=== PATIENT | female | born 1960 | race Caucasian/White ===

== ENCOUNTER 2016-12-05 05:44 | Observation (INO) | payer MEDICARE ==
[~2016-12-05] VITALS: Ht 154.9 cm; Wt 68.5 kg
--- NOTE | ~2016-12-05 | OR ---
Unit #: [id number] #: [id number] Patient: AIDA MAZARIEGOS [id number] [address] [place], [place] [address] [id number] MR#: [id number] NAME: AIDA MAZARIEGOS ROOM: 477 Date of Procedure: 12/05/2016 Admission Date: 12/05/2016 Surgeon: Garth Dorado M.D. : 1960 Attending Physician: Garth Dorado M.D. Primary Care Physician: Feroz Mancera M.D. OPERATIVE REPORT PREOPERATIVE DIAGNOSES 1. Right calcaneal malunion. 2. Posttraumatic right subtalar joint arthritis. 3. Right calcaneocuboid joint arthritis, posttraumatic. POSTOPERATIVE DIAGNOSES 1. Right calcaneal malunion. 2. Posttraumatic right subtalar joint arthritis. 3. Right calcaneocuboid joint arthritis, posttraumatic. PROCEDURES PERFORMED 1. Right posterior distraction subtalar fusion using allograft (75269). 2. Right calcaneocuboid fusion (41502). 3. Right Barroso calcaneal osteotomy (12030). 4. Right proximal tibial bone graft, large (37358). [employer]. ANESTHESIA Popliteal saphenous block and general. INDICATIONS FOR SURGERY The patient is a 56-year-old female, who is 1 year status post right calcaneal fracture, which was treated nonoperatively. The patient now has a varus deformity of the hindfoot measuring 10 degrees as well as pain over her arthritic subtalar and calcaneocuboid joints. The patient has failed nonoperative care. CT scan shows a decreased Boehler angle and posttraumatic arthritis of the subtalar joint and calcaneocuboid joint. The calcaneus has healed in a 10-degree varus malunion. The patient is therefore to undergo posterior distraction fusion to reestablish calcaneal height, address the subtalar joint arthritis as well as calcaneocuboid fusion. DESCRIPTION OF PROCEDURE The patient underwent popliteal saphenous block in the anesthesia holding area to the right lower extremity. She was taken to the operating room and placed in supine position, and general anesthetic was induced. She was then placed in a left lateral decubitus position, and all bony prominences were well padded. The axillary roll was placed, and the patient was positioned with the aid of a beanbag. A pneumatic tourniquet was applied to the right thigh. The right leg was identified as the Unit #: [id number] #: [id number] Patient: AIDA MAZARIEGOS correct operative extremity during the time-out procedure. The IV antibiotic protocol was followed. The right leg was then prepped and draped in the usual sterile fashion. The leg was exsanguinated and the thigh tourniquet inflated to 300 mmHg. A lateral longitudinal incision was then made over the distal fibula and sinus tarsi extending to the base of the fourth metatarsal measuring 8 cm. Subcutaneous tissue was carefully divided. The subtalar joint was opened and distracted with a laminar applied biology professor. The contents of the sinus tarsi were excised. The power osteotome, curved curettes, and rongeurs were utilized to remove the articular cartilage from both sides of the subtalar joint. The underlying subchondral bone was then feathered with the power osteotome. The calcaneocuboid joint was then exposed, and the power osteotome, curved curettes, and rongeurs were utilized to remove the articular cartilage from both sides of the calcaneocuboid joint. The underlying subchondral bone was feathered with the power osteotome. A 6 cm lateral proximal tibial incision was then made over the Gerdy's tubercle. The extensor retinaculum was opened, and the lateral proximal tibial cortex was exposed subperiosteally. A 1 x 2 cm cortical window was made with the power osteotome, and a large amount of cancellous graft was harvested with the curved curette. The subtalar joint was then distracted with a laminar applied biology professor, and a 16 mm wide allograft bone wedge from [place] was placed in the posteromedial aspect of the subtalar joint. Position was checked with C-arm fluoroscopy. A collagen sponge soaked in the bone morphogenic protein was then placed in the anterior portion of the subtalar joint, and the autogenous bone graft was then packed into the sinus tarsi and around the lateral aspect of the allograft bone wedge. Attempts were made to reduce the subtalar joint out of varus without significant success. It was therefore decided to proceed with lateral closing wedge osteotomy of the calcaneus. A 5 cm lateral incision was made over the calcaneal tuberosity. Subcutaneous tissue was divided. Dissection proceeded directly down to the lateral calcaneal wall. A 5 mm bone wedge was then harvested with the microsagittal saw. The wedge was removed and then the osteotomy was closed. The osteotomy and subtalar joint were then fixated with two guide pins placed from the posterior inferior heel into the talar neck and talar body in a parallel fashion. This then corrected the hindfoot to about 2 degrees of valgus. A fully-threaded [place] 7.0 screw was placed over the inferior guide pin and tightened. A [place] 5.5 mm diameter fully-threaded cannulated screw was placed over the superior guide pin and tightened. Excellent fixation was achieved. Intraoperative C-arm fluoroscopy in AP and lateral views showed proper screw position. The forefoot was then reduced and the calcaneocuboid joint was fixated with [place] 5.5 mm diameter partially-threaded cannulated screw placed from distal to proximal. The proximal tibial donor site was then irrigated and packed with Gelfoam. The cortical window was replaced. The extensor retinaculum was closed meticulously with a running 2-0 Vicryl locking suture. Tourniquet was released with a total tourniquet time of 95 minutes. Bleeding was controlled with electrocautery. The deep muscle fascia was closed with 2-0 Vicryl. Subcutaneous tissue was closed with 3-0 Vicryl, and the skin was closed with 3-0 nylon horizontal mattress sutures. Xeroform gauze, Unit #: [id number] #: [id number] Patient: AIDA MAZARIEGOS dressing, sponges, Webril, and a posterior fiberglass splint were applied. The patient was then transported to the recovery room in stable condition. ESTIMATED BLOOD LOSS Minimal. COMPLICATIONS None. SPECIMENS None. TOURNIQUET TIME 95 minutes. Dictated byKenyatta Sandhu/china TD: 12/06/2016 03:54 JOB #: [id number] OPERATIVE REPORT Page 1 of 1 X Roxana Dorado MD PROCEDURE OPERATIVE NOTE
--- NOTE | ~2016-12-05 | DS ---
Unit #: [id number] #: [id number] Patient: AIDA MAZARIEGOS [id number] [address] [place], [place] [address] [id number] MR#: [id number] NAME: AIDA MAZARIEGOS ROOM: 477 Age: 56 Sex: F Admission Date: 12/05/2016 : 1960 Discharge Date: 12/07/2016 Attending Physician: Garth Dorado M.D. Primary Care Physician: Feroz Mancera M.D. DISCHARGE SUMMARY CHIEF COMPLAINT Right foot pain. HISTORY OF PRESENT ILLNESS The patient has a history of previous right calcaneal fracture treated nonoperatively. She now has a calcaneal malunion with posttraumatic arthritis and hindfoot varus. She has failed to respond to conservative care. She is therefore admitted for operative intervention. HOSPITAL COURSE The patient was taken to the operating room on the date of admission where she underwent right posterior distraction and subtalar fusion using tricortical Allograft, calcaneal cuboid fusion, Barroso calcaneal osteotomy, and proximal tibial bone graft. There were no operative complications. She had a stable postoperative course. Pain was controlled with an IV morphine INBOUND INGREDIENT LOGISTICS SPECIALIST and oral Percocet. She was seen by physical therapy on a daily basis and instructed on how to remain nonweightbearing on her affected side. She remained afebrile with stable vital signs. Dressing was changed on the second postoperative day. Wounds were healing well. FINAL DIAGNOSES 1. Right calcaneal malunion. 2. Posttraumatic right subtalar joint arthritis. 3. Posttraumatic right calcaneal cuboid joint arthritis. PLAN 1. The patient is discharged home. She will keep the dressing clean, dry, and intact. She will continue ice and elevation. 2. She will be strictly nonweightbearing for three months. 3. Discharge medications remain the same as her home medications with the addition of Percocet 5/325 one or two p.o. q.6 hours p.r.n. pain dispense 50 and Xarelto 10 mg p.o. daily for a total of two weeks postoperatively. 4. Followup in my office in two weeks for dressing change, suture removal, application of a cast. Dictated by.Eloy Dorado M.D. [facility]/elisabeth Unit #: [id number] #: [id number] Patient: AIDA MAZARIEGOS TD: 12/07/2016 08:58 JOB #: [id number] DISCHARGE SUMMARY Page 1 of 1 X Roxana Dorado MD X DISCHARGE SUMMARY
--- NOTE | ~2016-12-05 | HP ---
Unit #: [id number] #: [id number] Patient: AIDA MAZARIEGOS [id number] [address] [place], [place] [address] [id number] MR#: [id number] NAME: AIDA MAZARIEGOS ROOM: Age: 56 Sex: F Admission Date: 12/05/2016 : 1960 Attending Physician: Garth Dorado M.D. Primary Care Physician: Feroz Mancera M.D. HISTORY AND PHYSICAL CHIEF COMPLAINT Right foot pain. HISTORY OF PRESENT ILLNESS The patient is a 56-year-old female who fell 2 feet into a concrete ditch in November 2015, 1 year ago. She was treated nonoperatively. She was eventually seen by Dr. Mao who diagnosed her with post-traumatic subtalar joint arthritis with a calcaneal malunion. The patient has had a CT scan which demonstrates loss of Bohler's angle and calcaneocuboid arthritis with post-traumatic arthritis of the subtalar joint and calcaneocuboid joint. The patient is therefore admitted for subtalar fusion and calcaneocuboid joint fusion. The patient is a smoker and we will also use infused bone morphogenic protein. PAST MEDICAL HISTORY Remarkable for: 1. Tobacco abuse. 2. Migraines. 3. Allergic rhinitis. 4. Hypercholesterolemia. 5. Major depression. 6. Urinary incontinence. HOME MEDICATIONS 1. Alendronate. 2. Atorvastatin. 3. Buspirone. 4. Celexa. 5. Excedrin. 6. Ibuprofen. 7. Topiramate. 8. Trazodone. ALLERGIES None. PAST SURGICAL HISTORY 1. . 2. Foot surgery. SOCIAL HISTORY The patient is a current everyday smoker. She reports social use of alcohol. Unit #: [id number] #: [id number] Patient: AIDA MAZARIEGOS FAMILY HISTORY Remarkable for stroke, COPD, osteoporosis, diabetes, myocardial infarction and alcohol abuse. REVIEW OF SYSTEMS Otherwise unremarkable. PHYSICAL EXAMINATION GENERAL: Height 5 foot 5, weight 145 pounds. In general, this is a small, well developed, well nourished female in no acute distress. PHARYNX: Clear. NECK: Supple without masses. HEART: Regular sinus rhythm without murmurs or gallops. LUNGS: Clear. ABDOMEN: Soft and nontender without masses or organomegaly. Evaluation of the right foot shows a slight cavus of the foot with 10 degrees of healed varus. The left heel is in neutral position. The patient has 10 degrees of fixed forefoot varus. Right ankle dorsiflexion 5 degrees, plantar flexion 30 degrees. Subtalar motion is absent. First MCP joint dorsiflexion 30 degrees, plantar flexion 10 degrees. The patient exhibits mild first ray elevatus. The patient is tender over the sinus tarsi and over the lateral border of the midfoot in the location of the calcaneocuboid joint. The ankle joint is nontender. Pulses are normal. Sensation is normal. Motor exam is normal. Standing x-rays of the right ankle are normal. Standing x-rays of the right foot show a calcaneal malunion with a Bohler's angle measuring -14 degrees. There is calcaneocuboid arthritis and first ray elevatus. CT scan of the right foot performed July 2016, shows a calcaneal malunion without significant lateral impingement. There is 10 degrees of calcaneal tuberosity varus. There is arthritis of the calcaneocuboid joint. ADMITTING DIAGNOSES 1. Right calcaneal malunion. 2. Right post-traumatic subtalar arthritis. 3. Right post-traumatic calcaneocuboid joint arthritis. 4. Mild first ray elevatus with limitation of first MTP joint dorsiflexion. PLAN 1. The patient has failed to conservative care. She has pain with activities of daily living. She is therefore admitted for surgical intervention. 2. The patient will therefore undergo posterior distraction subtalar fusion using an allograft tricortical bone wedge. Will also use proximal tibial bone graft to augment the fusion and use infused bone morphogenic protein because of her smoking history. She will also undergo calcaneocuboid fusion. This procedure was described along with risks of bleeding, infection, nerve damage, need for further surgery in the future, prolonged recovery time, deep venous thrombosis, pulmonary embolism, nonunion, malunion and anesthetic complications. The patient understands there is no guarantee of a normal foot and she will most likely have ongoing foot pain. We are trying to relieve her pain by 60-70%. She understands the above risks and agrees to proceed with the treatment plan. Unit #: [id number] #: [id number] Patient: AIDA MAZARIEGOS Dictated by Kenyatta Jackson/aleksandra TD: 12/05/2016 08:15 JOB #: [id number] HISTORY AND PHYSICAL Page 1 of 1 X Roxana Dorado MD X HISTORY AND PHYSICAL
[~2016-12-05 05:44] MED LIST: ATORVASTATIN CA10 MG PO; BUSPAR15 M2 PO; CELEXA PO; CITALOPRAM HBR40 MG PO; DESYREL100 MG PO; DESYREL50 MG PO; FLEXERIL PO; FOSAMAX PO; IBUPROFEN800 MG PO; KEFLEX500 M1 PO; KLONOPIN0.25 MG/TA PO; LIPITOR20 MG PO; MIRALAX17 GM PO; MOTRIN600 M2 PO; NORCO1 TAB 10/3 PO; TOPAMAX PO; TOPAMAX50 MG PO
[2016-12-06 02:06] LABS: HEMATOCRIT 35.2 % (35.0-45.0); HEMOGLOBIN 11.4 gm/dL (12.0-16.0)
[2016-12-07] MEDS ORDERED: XARELTO10 MG PO (10:36)
[2016-12-07] MEDS ORDERED: PERCOCET5/325 PO (10:36)
== END 2016-12-07 11:49 | disposition home or self-care (01) ==
LOC: CSUR 05:44 → CEDOF 08:15 → C4C 08:15 → CSUR 10:00 → CEDOF 10:20 → C4C 11:46 → CEDOF 11:46 → C4C 12-07 11:49
PROVIDERS: Orthopaedic Surgery
DX: S92.001P Unspecified fracture of right calcaneus, subsequent encounter for fracture with malunion (principal); M19.171 Post-traumatic osteoarthritis, right ankle and foot; J44.9 Chronic obstructive pulmonary disease, unspecified; M81.0 Age-related osteoporosis without current pathological fracture; G43.909 Migraine, unspecified, not intractable, without status migrainosus; F32.9 Major depressive disorder, single episode, unspecified; F17.210 Nicotine dependence, cigarettes, uncomplicated; Z79.1 Long term (current) use of non-steroidal anti-inflammatories (NSAID); Z79.899 Other long term (current) drug therapy; Z98.890 Other specified postprocedural states; X58.XXXD Exposure to other specified factors, subsequent encounter
CPT/HCPCS: 85014; 85018; 94010; 94760; 96374; 96375; 96376; 97116; 97161; 97530; C1713; G0378; G8978-GP; G8979-GP; G8980-GP; J0690; J2250; J2270; J2405; J2550; J2795; J3010